=== PATIENT | female | born 1950 | race Two or more races ===

== ENCOUNTER 2025-05-14 15:09 | Observation (INO) | payer MEDICARE, MEDICAID, SELFPAY ==
--- NOTE | 2025-05-14 15:19 | EKG_ITS ---
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1950 Requested By: Justin Seay Order Number: [id number] Reading MD: Justin Seay Measurements Intervals [place] Rate: 168 P: UT: QRS: -27 QRSD: 86 T: 116 QT: 262 QTc: 438 Interpretive Statements ATRIAL FIBRILLATION WITH RAPID VENTRICULAR RESPONSE BORDERLINE LEFT AXIS DEVIATION [QRS AXIS < -20] MODERATE VOLTAGE CRITERIA FOR LVH, CONSIDER NORMAL VARIANT [MEETS CRITERIA IN ONE OF: R(aVL), S(V1), R(V5), R(V5/V6)+S(V1)] ST DEVIATION AND MODERATE T-WAVE ABNORMALITY, CONSIDER LATERAL ISCHEMIA [-0.1+ mV T-WAVE IN I/aVL/V5/V6] CRITICAL TEST RESULT No previous ECG available for comparison /store/S0/[id number].pdf
[2025-05-14 15:25] VITALS: BP 114/73; PULSE 120; RESP 18; TEMP 36.8; O2SAT 95; BMI 30.7
--- NOTE | 2025-05-14 15:37 | PD.EDRME ---
Rapid Medical Screening Exam E Arrival date/time: 05/14/25 15:09 74-year-old female with no known medical history presents to the emergency room with a chief complaint of palpitations x 2 days. Patient was sent to the emergency room by her primary care provider after they did an EKG and found the patient to be in A-fib RVR. I have greeted and performed a focused initial assessment of this patient. A comprehensive ED assessment and evaluation of the patient, analysis of all test results, and completion of the medical decision making process will be conducted by additional ED providers. Chief Complaint: General Adult/Misc Complain Vital signs: Vital Signs Temperature 98.3 F 05/14/25 15:25 Pulse Rate 120 H 05/14/25 15:25 Respiratory Rate 18 05/14/25 15:25 Blood Pressure 114/73 05/14/25 15:25 Pulse Oximetry (%) 95 05/14/25 15:25 Oxygen Delivery Method Room Air 05/14/25 15:25 Vital signs reviewed by provider: Yes
--- NOTE | 2025-05-14 15:50 | PC.NURSE ---
PT SELF CONVERTED AT THIS TIME. ADENOSINE CANCELLED BY PROVIDER.
[2025-05-14 16:05] LABS: Basophils # (Auto) 0.1 Thou/mm3 (0.0-0.2); Basophils % (Auto) 1 % (0-2.5); Eosinophils # (Auto) 0.1 Thou/mm3 (0.0-0.5); Eosinophils % (Auto) 1 % (0-10); Hematocrit 49.6 % (36.0-46.0); Hemoglobin 16.5 g/dL (12.0-16.0); Immature Granulocytes Auto 0.02 Thou/mm3 (0.00-0.00); Lymphocytes # (Auto) 4.7 Thou/mm3 (1.0-4.8); Lymphocytes % (Auto) 44 % (10-50); Mean Corpuscular HGB Conc 33.3 g/dl (31.0-37.0); Mean Corpuscular Hemoglobin 30.2 pg (25.0-35.0); Mean Corpuscular Volume 91 fL (80-100); Monocytes # (Auto) 1.0 Thou/mm3 (0.0-0.8); Monocytes % (Auto) 9 % (0-12); Neutrophils # (Auto) 4.8 Thou/mm3 (1.8-7.7); Neutrophils % (Auto) 45 % (37-80); Nucleated Red Blood Cell # 0.00 Thou/mm3 (0.00-0.00); Nucleated Red Blood Cell % 0 /100 WBC (0); Platelet Count 296 Thou/mm3 (140-440); RDW Standard Deviation 44.0 fL (36.4-46.3); Red Blood Count 5.47 Miln/mm3 (4.00-5.20); White Blood Count 10.7 Thou/mm3 (3.6-11.0)
[2025-05-14 16:22] LABS: Alanine Aminotransferase 18 U/L (10-49); Albumin, Serum 4.6 gm/dL (3.4-4.8); Albumin/Globulin Ratio 1.4 (1.2-2.2); Alkaline Phosphatase 104 U/L (46-116); Anion Gap 11 (7-16); Aspartate Amino Transferase 28 U/L (0-34); B-Type Natriuretic Peptide 244 pg/mL (0-100); BUN/Creatinine Ratio 9 Ratio (12-20); Bilirubin,Total 0.5 mg/dL (0.3-1.2); Blood Urea Nitrogen 10 mg/dL (9-23); Calcium 10.5 mg/dL (8.3-10.6); Calcium (Corrected) 10.5 mg/dL (8.5-10.1); Carbon Dioxide 25.6 mMol/L (20.0-31.0); Chloride 105 mMol/L (98-107); Creatinine (Component) 1.1 mg/dL (0.6-1.3); Estimated Creatinine Clearance 50.6 mL/min (>60); Globulin 3.2 gm/dL (2.3-3.5); Glucose 104 mg/dL (74-106); LDH (Lactate Dehydrogenase) 207 U/L (120-246); Magnesium 2.3 mg/dL (1.6-2.6); Osmolality,Calculated 282 (275-295); Potassium 4.2 mMol/L (3.4-5.1); Sodium 142 mMol/L (136-145); Total Protein 7.8 gm/dL (5.7-8.2); Troponin I < 0.020 ng/mL (0.0-0.045); eGFR 52 See Note
[2025-05-14 16:24] LABS: INR 1.0 (0.9-1.3); Partial Thromboplastin Time 27.3 Seconds (22.0-36.0); Prothrombin Time 11.3 Seconds (9.0-12.2)
--- NOTE | 2025-05-14 16:26 | XR_ITS ---
Examination: AP chest single view Technique one AP portable upright chest single view Date and time: May 14, 2025, 1644 hrs. Indications: Onset atrial fibrillation, RVR today Findings: Mild prominence of ventricle Mild ectasia thoracic aorta. Mild vascular congestion. No lobar pneumonia or pulmonary edema Impression: Mild prominence cardiac contour Mild vascular congestion
--- NOTE | 2025-05-14 16:26 | PD.EDCHEST ---
ED Chest Pain RME/HPI General Chief Complaint: General Adult/Misc Complain Stated Complaint: Afib with RVR, new onset Time Seen by Provider: 05/14/25 15:42 Arrival date/time: 05/14/25 15:09 Limitations: no limitations RME / HPI RME / HPI narrative: 05/14/25 15:09 74-year-old female with no known medical history presents to the emergency room with a chief complaint of palpitations x 2 days. Patient was sent to the emergency room by her primary care provider after they did an EKG and found the patient to be in A-fib RVR. I have greeted and performed a focused initial assessment of this patient. A comprehensive ED assessment and evaluation of the patient, analysis of all test results, and completion of the medical decision making process will be conducted by additional ED providers. DR. ELISABETH TERRY ED EVALUATION 74 year old female with history of depression presents to the ED referred by her PCP for evaluation of an irregular cardiac rhythm. Reports that she was exercising when she first noticed a sensation of palpitations. Denies associated chest pain, shortness of breath, dizziness, syncope, or other symptoms. She subsequently consulted her PCP, who performed an in-office EKG that revealed new-onset atrial fibrillation with RVR, prompting referral to the ED for further evaluation and management. Related Data Allergies Allergy/AdvReac Type Severity Reaction Status Date / Time No Known Drug Allergies Allergy Verified 05/14/25 15:16 Review of Systems Review of Systems Systems Reviewed: All systems reviewed, normal except as documented Past Medical History Past Medical History CARDIAC: Negative Congestive Heart Failure RESPIRATORY: Negative Chronic Obstructive Pulmonary Disease (COPD) GENITOURINARY: Negative Renal Disease ENDOCRINE: Negative Diabetes Mellitus Type 1 or Diabetes Mellitus Type 2 PSYCHO/SOCIAL: Positive Depression Social History SMOKING STATUS: Never smoker ED Exam General Limitations: Present no limitations General appearance: Present alert and in no apparent distress Head Head exam: Present atraumatic Eye Eye exam: Present normal appearance, PERRL and EOMI ENT ENT exam: Present normal exam, normal oropharynx and mucous membranes moist Neck Neck exam: Present normal inspection, full ROM and trachea midline Chest Chest inspection: Present normal inspection and symmetric chest wall rise Respiratory Respiratory exam: Present normal lung sounds bilaterally Cardiovascular Cardiovascular exam: Present tachycardia and normal heart sounds Abdominal Exam Abdominal exam: Present soft and normal bowel sounds Extremities Exam Extremities exam: Present normal inspection and full ROM Back Exam Back exam: Present normal inspection and full ROM Neurological Exam Neurological exam: Present alert, oriented X3 and CN II-XII intact Psychiatric Psychiatric exam: Present normal affect and normal mood Skin Skin exam: Present warm, dry, intact and normal color Course Quality Measures none Orders Category Date Time Status Patient Condition Routine Admission 05/14/25 18:[address] in Observation Status Routine Admission 05/14/25 18:45 Active Activity as Tolerated Routine Care 05/14/25 18:47 Ordered Bedside COVID-19 Antigen Test NOW Care 05/14/25 15:43 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 START 00 Care 05/14/25 17:54 Active EKG (ED ONLY) *Do not use* NOW Care 05/14/25 15:19 Completed Flu & Pneumonia Vaccine Screen ONCE Care 05/14/25 18:45 Active Notify provider NEEDED Care 05/14/25 18:45 Active Strict Intake and Output Routine Care 05/14/25 18:46 Ordered Consult to Cardiology Routine Cons 05/14/25 18:50 Ordered Diet Cardiac Diet 05/15/25 Breakfast Active CA echo doppler complete Routine Exams 05/14/25 18:48 Ordered CXR [XR chest 1V] Stat Exams 05/14/25 16:26 Completed EKG (ED Only) Stat Exams 05/14/25 15:19 Draft B-Type Natriuretic Peptide Stat Lab 05/14/25 15:48 Completed CBC AM DRAW Lab 05/15/25 05:00 Ordered CBC AM DRAW Lab 05/16/25 05:00 Ordered CBC AM DRAW Lab 05/17/25 05:00 Ordered CBC Stat Lab 05/14/25 15:48 Completed Comprehensive Metabolic Panel AM DRAW Lab 05/15/25 05:00 Ordered Comprehensive Metabolic Panel AM DRAW Lab 05/16/25 05:00 Ordered Comprehensive Metabolic Panel AM DRAW Lab 05/17/25 05:00 Ordered Comprehensive Metabolic Panel Stat Lab 05/14/25 15:48 Completed Drug Screen,Urine Stat Lab 05/14/25 19:03 Received Influenza A & B Rapid Panel Stat Lab 05/14/25 18:03 Completed LDH (Lactate Dehydrogenase) Stat Lab 05/14/25 15:48 Completed Lipid Panel AM DRAW Lab 05/15/25 05:00 Ordered Lipid Panel AM DRAW Lab 05/16/25 05:00 Ordered Lipid Panel AM DRAW Lab 05/17/25 05:00 Ordered Magnesium AM DRAW Lab 05/15/25 05:00 Ordered Magnesium Stat Lab 05/14/25 15:48 Completed Partial Thromboplastin Time Stat Lab 05/14/25 15:48 Completed Phosphorous AM DRAW Lab 05/15/25 05:00 Ordered Prothrombin Time with INR Stat Lab 05/14/25 15:48 Completed T4 (Thyroxine) Stat Lab 05/14/25 15:48 Completed Thyroid Stimulating Hormone AM DRAW Lab 05/15/25 05:00 Ordered Thyroid Stimulating Hormone Stat Lab 05/14/25 15:48 Completed Troponin I Stat Lab 05/14/25 15:48 Completed Urinalysis, C/S if Indicated Stat Lab 05/14/25 19:03 Completed Acetaminophen Tab [Tylenol Tab] Med 05/14/25 18:45 Active 650 mg PO Q6H PRN Adenosine 6mg Inj [Adenocard Inj] Med 05/14/25 15:44 Discontinued 3 mg IVP X1 ONE Enoxaparin [Lovenox] Med 05/15/25 09:00 Active 40 mg SC QDAY Etomidate Inj [Amidate Inj] Med 05/14/25 15:44 Discontinued 10 mg IVP X1 ONE LORazepam [Ativan] Med 05/14/25 15:53 Discontinued 0.5 mg PO X1 ONE Lisinopril [Prinivil] Med 05/14/25 19:00 Active 2.5 mg PO QDAY Magnesium Sulfate 1 gm Ivpb [Magnesium Sulfate Ivpb] Med 05/14/25 16:25 Discontinued 1 gm in 100 ml IV X1 Ondansetron Inj [Zofran Inj] Med 05/14/25 18:45 Active 4 mg IVP Q6H PRN Code Status Routine Oth 05/14/25 18:45 Ordered Vital Signs Vital signs: Vital Signs Temperature 98.3 F 05/14/25 15:25 Pulse Rate 120 H 05/14/25 15:25 Respiratory Rate 18 05/14/25 15:25 Blood Pressure 114/73 05/14/25 15:25 Pulse Oximetry (%) 95 05/14/25 15:25 Oxygen Delivery Method Room Air 05/14/25 15:25 Pulse ox is 95% on room air which is adequate. Chest Pain MDM Narrative MDM Narrative:: Patient is a 74-year-old female seen emerged primary concerns for palpitations. Vital signs and exam as listed. Concern for ACS arrhythmia electrolyte abnormality viral syndrome thyroid dysfunction among others. Ordered labs EKG chest x-ray. 5:40p I spoke with injection maintenance technician Dr. Griggs, he agrees to consult. 5:50p I spoke with hospitalist Dr. Claros. She accepts the patient for admission. Patient data External records reviewed:: None Clinical information provided by:: patient Social determinants that could affect healthcare access:: none Patient has the following chronic illnesses:: See MDM How is presenting disease/condition affected by chronic disease/condition?: exacerbated by Evaluation data The following diagnostics were reviewed and interpreted by me:: lab results, radiology exam(s) and EKG tracing(s) Lab and/or radiology exams considered but not ordered:: None Interpretation Summary: CAD Medications / Prescriptions Medications or Prescriptions considered but not ordered:: None Medication administrations:: Medication Administration History Acetaminophen (Acetaminophen 325 Mg Tablet) 650 mg PO Q6H PRN PRN Reason: Fever >101.0 Stop: 06/13/25 18:44 Enoxaparin Sodium (Enoxaparin Sod Inj 40 Mg/0.4 Ml Syringe) 40 mg SC QDAY [facility] Stop: 05/29/25 08:59 Lisinopril (Lisinopril 2.5 Mg Tablet) 2.5 mg PO QDAY JOSIAH Stop: 06/13/25 18:59 Last Admin: 05/14/25 19:35 Dose: 2.5 mg Documented By: MIK Ondansetron HCl (Ondansetron Inj 2 Mg/Ml Inj 2 Ml) 4 mg IVP Q6H PRN; Protocol PRN Reason: NAUSEA OR VOMITING Stop: 06/13/25 18:44 Discontinued Medications Adenosine (Adenosine Inj 3 Mg/Ml Vial) 3 mg IVP X1 ONE Stop: 05/14/25 15:45 Last Admin: 05/14/25 16:02 Dose: Not Given Documented By: LF Non-Admin Reason: Change of Condition Etomidate (Etomidate Inj 2 Mg/Ml Vial 10 Ml) 10 mg IVP X1 ONE Stop: 05/14/25 15:45 Last Admin: 05/14/25 16:03 Dose: Not Given Documented By: LF Non-Admin Reason: Discontinued Magnesium Sulfate/Dextrose (Magnesium Sulfate Ivpb) 1 gm in 100 mls @ 100 mls/hr IV X1 ONE Stop: 05/14/25 17:24 Last Infusion: 05/14/25 19:35 Dose: Infused Documented By: Admin: 05/14/25 17:59 Dose: 100 mls/hr Documented By: JOHN Lorazepam (Lorazepam 0.5 Mg Tablet) 0.5 mg PO X1 ONE Stop: 05/14/25 15:54 Last Admin: 05/14/25 17:59 Dose: 0.5 mg Documented By: JOHN See above Consultations Consultation(s) initiated? (list below): Yes Consultation #1 (Physician, Specialty, Details): see mdm Admission Indicated Admission indicated?: indicated Admission Request Was there a request for admission?: Yes Admission Attestation Admission request attestation: Discussed case with [] from Hospitalist service regarding admission. Discussed patients ED course, exam findings, labs, and radiology results. The Hospitalist [agrees,declines] to accept the patient for admission. Disposition Plan Disposition Plan: Admit
[2025-05-14 16:47] LABS: T4 (Thyroxine) 7.3 mcg/dL (4.5-10.9)
[2025-05-14 16:55] LABS: Thyroid Stimulating Hormone 1.88 uIU/mL (0.55-4.78)
[2025-05-14 17:00] VITALS: BP 151/96; PULSE 70; RESP 14; O2SAT 100
[2025-05-14 17:54] VITALS: PULSE 76
[2025-05-14 18:18] VITALS: BP 168/88; PULSE 69; RESP 18; TEMP 36.7; O2SAT 100
[2025-05-14 18:30] LABS: Influenza A Ag Negative; Influenza B Ag Negative
[2025-05-14 19:06] LABS: Collection Type, Urine Clean Catch
[2025-05-14 19:18] LABS: Amorphous Crystals,Urine Present (Absent); Bacteria,Urine 1+; Bilirubin,Urine Negative (Negative); Blood,Urine Negative (Negative); Clarity,Urine Turbid (Clear/Hazy); Color,Urine Lt-Yellow (Lt Yel-Yel); Culture Indicated,Urine Contaminated; Glucose, Urine Negative (Negative); Ketones,Urine Negative (Negative); Leukocyte Esterase,Urine Positive (Negative); Nitrite,Urine Negative (Negative); PH,Urine 6.5 (5.0-7.0); Protein,Urine Negative (Neg - Trace); RBC,Urine 8 /hpf (0-3); Specific Gravity,Urine 1.014 (1.001-1.035); Squamous Epithelial Cell,Urine 13 /hpf (0-5); Urobilinogen,Urine Negative mg/dL (0.0-1.0); WBC,Urine 11 /hpf (0-5)
[2025-05-14 19:35] VITALS: BP 143/91; PULSE 80
[2025-05-14 20:03] LABS: Amphetamine/Methamp Scrn,U Negative (Negative); Barbiturate Screen,Urine Negative (Negative); Benzodiazepines Screen,Urine Negative (Negative); Benzoylecgonine Screen, Ur Negative (Negative); Fentanyl Screen,Urine Negative (Negative); Opiate Screen,Urine Negative (Negative); THC Screen,Urine Negative (Negative)
--- NOTE | 2025-05-14 20:05 | PD.HHHP ---
Documentation for date of: 05/14/25 HPI - Hospitalist History of Present Illness History of present illness: Patient is a 74 years old female without known past medical history who presents to the ED from her PCP's office where she was found to have elevated heart rate. She denied any symptoms at that time including chest pain, SOB, palpitation. This was her first episode like this. She also denies fever, headache, dizzines, loss of consciousness. In the ED, patient was found to be tachycardic. EKG was obtained which showed SVT, without ST elevation. Chest x-ray was obtained, shows vascular congestion. Lab results show Hb 16.5, creatinine 1.1, eGFR 52, calcium 10.5. SVT resolved spontaneously with ice pack application. We will admit her on observation for SVT. 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, denies tobacco, alcohol and illicit drug use Review of Systems Review of Systems Systems Reviewed: All systems reviewed, normal except as documented Meds Home Medications and Allergies Allergies Allergy/AdvReac Type Severity Reaction Status Date / Time No Known Drug Allergies Allergy Verified 05/14/25 15:16 Exam Vital Signs Temp Pulse Resp BP Pulse Ox O2 Del Method 98.1 F 63 17 140/70 H 98 Room Air 05/14/25 18:18 05/14/25 22:20 05/14/25 22:20 05/14/25 22:20 05/14/25 22:20 05/14/25 22:20 Narrative General: alert and awake, appears comfortable HEENT: Normocephalic, atraumatic, mucous membranes dry. Pupils reactive to light. Heart: Regular rate and rhythm, normal S1 and S2, no murmurs. Lungs: Clear to auscultation bilaterally with no wheezing or crackles. Abdomen: Soft, nondistended, nontender, positive bowel sounds Extremities: No edema. 2+ radial and dorsalis pedis pulses bilaterally. Neurologic: Alert and oriented x4, no gross neurological deficit, and patient able to move all 4 extremities. Results - Hospitalist Labs Diagrams: 05/14/25 15:48 05/14/25 15:48 Labs: Short CBC 05/14/25 Range/Units 15:48 WBC 10.7 (3.6-11.0) Thou/mm3 Hgb 16.5 H (12.0-16.0) g/dL Hct 49.6 H (36.0-46.0) % Plt Count 296 (140-440) Thou/mm3 BMP 05/14/25 15:48 Sodium 142 Potassium 4.2 Chloride 105 Carbon Dioxide 25.6 BUN 10 Creatinine 1.1 Glucose 104 Calcium 10.5 Cardiac Enzymes 05/14/25 Range/Units 15:48 Troponin I < 0.020 (0.0-0.045) ng/mL Liver Function 05/14/25 Range/Units 15:48 Total Bilirubin 0.5 (0.3-1.2) mg/dL AST 28 (0-34) U/L ALT 18 (10-49) U/L Alkaline Phosphatase 104 (46-116) U/L Albumin 4.6 (3.4-4.8) gm/dL Urine 05/14/25 Range/Units 19:03 Urine Color Lt-Yellow (Lt Yel-Yel) Urine Clarity Turbid A (Clear/Hazy) Urine pH 6.5 (5.0-7.0) Ur Specific [place] 1.014 (1.001-1.035) Urine Protein Negative (Neg - Trace) Urine Glucose (UA) Negative (Negative) Assessment & Plan -Hospitalist Additional Plan Additional Plan: Patient is a 74 years old female without known medical history who presented to the ED with increased heart rate. She was found to have SVT. After examination of the patient and review of the clinical data I feel that this patient needs observation in the hospital for further treatment/evaluation. #Supraventricular Tachycardia Patient was found to be tachycardic EKG showed SVT with heart rate of 168. Resolved on its own with ice pack application We will obtain Echocardiography and Cardiology consult #Hypertension No previous history Blood pressure went up to 168/88 Started on Lisinopril 2.5 daily We will monitor closely and adjust antihypertensive accordingly Code: Full code DVT prophylaxis: Lovenox SC Diet: Cardia diet Disposition: Telemetry on observation for SVT Darline Haley MD Quality Measures Quality Measures none Advance care planning discussed with:: patient
[2025-05-14 22:20] VITALS: BP 140/70; PULSE 63; RESP 17; O2SAT 98
[2025-05-15 01:46] VITALS: BP 122/92; PULSE 62; RESP 15; O2SAT 95
[2025-05-15 05:10] LABS: Basophils # (Auto) 0.1 Thou/mm3 (0.0-0.2); Basophils % (Auto) 1 % (0-2.5); Eosinophils # (Auto) 0.1 Thou/mm3 (0.0-0.5); Eosinophils % (Auto) 2 % (0-10); Hematocrit 44.2 % (36.0-46.0); Hemoglobin 14.3 g/dL (12.0-16.0); Immature Granulocytes Auto 0.02 Thou/mm3 (0.00-0.00); Lymphocytes # (Auto) 3.2 Thou/mm3 (1.0-4.8); Lymphocytes % (Auto) 40 % (10-50); Mean Corpuscular HGB Conc 32.4 g/dl (31.0-37.0); Mean Corpuscular Hemoglobin 29.4 pg (25.0-35.0); Mean Corpuscular Volume 91 fL (80-100); Monocytes # (Auto) 0.7 Thou/mm3 (0.0-0.8); Monocytes % (Auto) 9 % (0-12); Neutrophils # (Auto) 4.0 Thou/mm3 (1.8-7.7); Neutrophils % (Auto) 49 % (37-80); Nucleated Red Blood Cell # 0.00 Thou/mm3 (0.00-0.00); Nucleated Red Blood Cell % 0 /100 WBC (0); Platelet Count 259 Thou/mm3 (140-440); RDW Standard Deviation 45.3 fL (36.4-46.3); Red Blood Count 4.86 Miln/mm3 (4.00-5.20); White Blood Count 8.2 Thou/mm3 (3.6-11.0)
[2025-05-15 05:31] LABS: Alanine Aminotransferase 17 U/L (10-49); Albumin, Serum 4.3 gm/dL (3.4-4.8); Albumin/Globulin Ratio 1.5 (1.2-2.2); Alkaline Phosphatase 87 U/L (46-116); Anion Gap 8 (7-16); Aspartate Amino Transferase 23 U/L (0-34); BUN/Creatinine Ratio 10 Ratio (12-20); Bilirubin,Total 0.7 mg/dL (0.3-1.2); Blood Urea Nitrogen 9 mg/dL (9-23); Calcium 9.8 mg/dL (8.3-10.6); Calcium (Corrected) 9.8 mg/dL (8.5-10.1); Carbon Dioxide 28.4 mMol/L (20.0-31.0); Cardiac Risk Estimate 3.9 RATIO (3.7-5.6); Chloride 105 mMol/L (98-107); Cholesterol 189 mg/dL (132-200); Creatinine (Component) 0.9 mg/dL (0.6-1.3); Estimated Creatinine Clearance 61.9 mL/min (>60); Globulin 2.9 gm/dL (2.3-3.5); Glucose 106 mg/dL (74-106); HDL Cholesterol 49 mg/dL (40-60); LDL Cholesterol,Calculated 123 mg/dL (0-130); Magnesium 2.3 mg/dL (1.6-2.6); Osmolality,Calculated 279 (275-295); Phosphorous 3.1 mg/dL (2.4-5.1); Potassium 4.2 mMol/L (3.4-5.1); Sodium 141 mMol/L (136-145); Thyroid Stimulating Hormone 2.69 uIU/mL (0.55-4.78); Total Protein 7.2 gm/dL (5.7-8.2); Triglycerides 86 mg/dL (30-150); eGFR > 60 See Note
[2025-05-15 05:38] VITALS: BP 136/69; PULSE 62; RESP 19; TEMP 36.7; O2SAT 94
[2025-05-15 08:35] VITALS: BP 128/63; PULSE 68; RESP 17; TEMP 37.1; O2SAT 97
--- NOTE | 2025-05-15 08:36 | PC.NURSE ---
Pt. here from home to room 6, pt. sitting up in bed eating breakfast at this time, pt. smiling stating she feels good, pt. denies any dizziness at this time.
--- NOTE | 2025-05-15 09:11 | PC.NURSE ---
Dr. Rodriguez is bedside talking with pt.
--- NOTE | 2025-05-15 10:00 | PC.NURSE ---
Dr. Rodriguez stated they will take pt. 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 Dr. Rodriguez states he spoke to cardiology and they have a plan.
[2025-05-15 10:02] VITALS: BP 115/74; PULSE 74
[2025-05-15] MEDS: DILTIAZEM 30 MG TABLET PO (10:02)
[2025-05-15] MEDS: ENOXAPARIN SOD INJ 40 MG/0.4 ML SYRINGE SC (10:04)
--- NOTE | 2025-05-15 10:20 | PC.NURSE ---
DC order placed by Dr. Mejia while PT still in ED. Confirmed with Dr. Mejia that PT can be discharged from the ED at this time, she stated yes, PT can go home from ED, no need to take to the floor.
--- NOTE | 2025-05-15 11:07 | PD.IMCONS ---
HPI Data of Consult Requesting Physician: Darline Haley MD Primary Care Provider: Power Morales PA-C Consult Narrative History of present illness: This is a 74 years old female without known past medical history palpitation heart pounding Shortness of breath atypical chest pain Initial EKG shows SVT at the rate of 160 bpm subsequently patient was converted to sinus rhythm with ice pack placement Currently patient is seen in the emergency room He is in sinus rhythm Heart rate is 74 bpm Patient denies any cardiac symptoms No prior cardiac history noted including no prior SVT or palpitations cc:: cc: Darline Haley MD Meds Home Medications and Allergies Allergies Allergy/AdvReac Type Severity Reaction Status Date / Time No Known Drug Allergies Allergy Verified 05/14/25 15:16 Exam Vital Signs Temp Pulse Resp BP Pulse Ox O2 Del Method 98.7 F 74 17 115/74 97 Room Air 05/15/25 08:35 05/15/25 10:02 05/15/25 08:35 05/15/25 10:02 05/15/25 08:35 05/15/25 08:35 Routine HEENT Exam Head: Present normocephalic and atraumatic Eye: Present EOMI and PERRL ENT: Present mucous membranes moist Routine Neck Exam Neck: Present supple and trachea midline Routine Respiratory Exam Respiratory: Present chest non-tender, lungs clear, normal breath sounds and no resp distress Routine Cardiovascular Exam Cardiovascular: Present RRR Routine Abdominal Exam Abdominal: Present soft and normoactive bowel sounds Routine Extremities Exam Extremities: Present full ROM Routine Skin Exam Skin: Present intact, dry and warm Routine Neurological Exam Neurological: Present alert, oriented X3 and CN II-XII intact Routine Psychiatric Exam Psychiatric: Present normal affect and normal thought process Results Labs 05/15/25 04:45 05/15/25 04:45 Labs: Short CBC 05/14/25 05/15/25 Range/Units 15:48 04:45 WBC 10.7 8.2 (3.6-11.0) Thou/mm3 Hgb 16.5 H 14.3 D (12.0-16.0) g/dL Hct 49.6 H 44.2 (36.0-46.0) % Plt Count 296 259 D (140-440) Thou/mm3 BMP 05/14/25 05/15/25 15:48 04:45 Sodium 142 141 Potassium 4.2 4.2 Chloride 105 105 Carbon Dioxide 25.6 28.4 BUN 10 9 Creatinine 1.1 0.9 Glucose 104 106 Calcium 10.5 9.8 Cardiac Enzymes 05/14/25 Range/Units 15:48 Troponin I < 0.020 (0.0-0.045) ng/mL Liver Function 05/14/25 05/15/25 Range/Units 15:48 04:45 Total Bilirubin 0.5 0.7 (0.3-1.2) mg/dL AST 28 23 (0-34) U/L ALT 18 17 (10-49) U/L Alkaline Phosphatase 104 87 (46-116) U/L Albumin 4.6 4.3 (3.4-4.8) gm/dL Urine 05/14/25 Range/Units 19:03 Urine Color Lt-Yellow (Lt Yel-Yel) Urine Clarity Turbid A (Clear/Hazy) Urine pH 6.5 (5.0-7.0) Ur Specific [place] 1.014 (1.001-1.035) Urine Protein Negative (Neg - Trace) Urine Glucose (UA) Negative (Negative) Assessment and Plan Assessment and plan (1) SVT (supraventricular tachycardia): Status: Acute (2) Palpitations: Status: Acute Additional Assessment & Plan Additional Plan: Patient is back in sinus rhythm Currently he is asymptomatic EKG does not show any acute ST-T wave changes Patient to be discharged from cardiac standpoint for outpatient follow-up Patient will require further evaluation and treatment for his SVT
[2025-05-15 11:09] VITALS: BP 113/87; PULSE 75; RESP 17; TEMP 36.7; O2SAT 96
--- NOTE | 2025-05-15 12:12 | ESDS_ITS ---
<Statement entered by Antelmo Mejia MD - 05/16/25 07:35> Patient was examined with the team including attending physician. Note reviewed, I agree with the discharge plan as documented. - Antelmo Mejia MD PGY 3 Disclaimer: The document may contain phonetic/typographic errors due to voice recognition software. Planned Discharge Date 05/15/25 DS: Providers Provider Date of admission: 05/14/25 19:07 Primary care physician: Power Morales PA-C Admitting Provider: Darline Haley MD Attending Provider on Admission: Darline Haley MD Consults: 05/14/25 18:50 Consult to Cardiology Routine Comment: SVT Consulting Provider: Sophy Griggs Attending Provider on DC: Darline Haley MD Discharging Provider: Claude Rodriguez DO DS: Diagnosis Discharge Diagnosis (1) SVT (supraventricular tachycardia): Status: Acute Problem List Completed Was Problem List Reviewed/Reconciled?: Yes Hospital Course Hospital Course Hospital course: Hospital Course: 74-year-old female with an unknown past medical history presented to the ED from her PCPs office when she had tachycardia. She denied any symptoms of chest pain shortness of breath or palpitations and this was the first time that she had an episode of tachycardia like this. An EKG on arrival showed SVT without ST elevations. Chest x-ray showed vascular congestion. An ice pack was placed and the patient's SVT resolved. She was admitted for observation. An echo was ordered and Dr. Griggs was consulted. Per cardiology recommendation the patient was started on Cardizem 30 mg 3 times a day and discharged from the ED. She will follow-up with Dr. Griggs outpatient. Problem List: #SVT #Palpitations Discharge Instructions: - Follow up with PCP within 1 week of discharge. - Follow up with Dr Griggs (cardiology) for further evaluation. You will need an echocardiogram. - Please take Cardizem three times a day as prescribed until follow up with [facility]. - Return to ED if symptoms worsen. The patient was seen and discussed with my attending physician Dr. Tera MCCALL and my senior resident Dr. Gil MCCALL PGY-3. Claude Rodriguez DO PGY-1 Time Spent with Patient Time attestation: Total time spent providing and/or coordinating discharge services: Time spent: Less than 30 minutes Exam Vital Signs Temp Pulse Resp BP Pulse Ox O2 Del Method 98.1 F 75 17 113/87 H 96 Room Air 05/15/25 11:05/15/25 11:05/15/25 11:05/15/25 11:05/15/25 11:05/15/25 08:35 Narrative Exam General: Awake and in no acute distress. Conversational and non-toxic appearing. Neurologic: GCS 15. Alert and oriented x3, no gross neurological deficit, and patient able to move all 4 extremities. HEENT: Normocephalic, atraumatic, mucous membranes moist. Pupils reactive to light. Heart: Regular rate and rhythm, normal S1 and S2, no murmurs. Lungs: Clear to auscultation bilaterally with no wheezing or crackles. Abdomen: Soft, nondistended, nontender, positive bowel sounds. No guarding or rebound tenderness. Extremities: No edema. 2+ radial and dorsalis pedis pulses bilaterally. Skin: Warm. Dry. No rash or ecchymoses. Discharge Plan Plan Patient Disposition: HOME (Self Care) Patient condition on transfer: Stable Care Plan Goals: - Follow up with PCP within 1 week of discharge. - Follow up with Dr Griggs (cardiology) for further evaluation. You will need an echocardiogram. - Please take Cardizem three times a day as prescribed until follow up with [facility] [facility]. - Return to ED if symptoms worsen. Prescriptions/Referrals Prescriptions/Med Rec: New diltiazem HCl [Cardizem] 30 mg tablet 30 mg PO TID 30 Days Qty: 90 0RF Referrals: Power Morales PA-C [Primary Care Provider] Patient/Caregiver Discharge Instructions Discharge Activity: activity as tolerated Print Language: Bengali Stand Alone Forms: Dina Award Info., Patient Portal Info Letter, Work/Release Restrictions Discharge Order Discharge Orders: Discharge (Routine); Ordered 05/15/25 Ordered By: Antelmo Mejia Quality Discharge Quality Measures none Attestestation Attestation I discussed the case with the residents and agree with the findings and plans of care as documented above. Darline Haley MD
== END 2025-05-15 11:11 | disposition home or self-care (01) ==
LOC: SERX 17:09 → SERHOLD 19:09
PROVIDERS: Nurse Practitioner Family; Admitting Provider Student in an Organized Health Care Education/Training Program; Emergency Provider Emergency Medicine; PCP Physician Assistant Medical; Visit Provider Student in an Organized Health Care Education/Training Program
DX: I47.10 Supraventricular tachycardia, unspecified (principal); R00.2 Palpitations; I10 Essential (primary) hypertension
CPT/HCPCS: 36415; 71045; 80053; 80061; 80307; 81001; 83615; 83735; 83880; 84100; 84436; 84443; 84484; 85025; 85610; 85730; 87502; 87811; 93005; 96365; 96366; 96372; 99285; G0378; J1650; J3475; A9270